=== PATIENT | male | born 1975 | race African-American/Black ===

== ENCOUNTER 2018-10-22 19:11 | Emergency (ER) | payer BC ==
[~2018-10-22] VITALS: Ht 175.3 cm; Wt 83.0 kg
[~2018-10-22 19:11] MED LIST: insulin; metformin
[2018-10-22 19:46] VITALS: BP 123/76
== END 2018-10-22 19:58 | disposition left against medical advice (07) ==
LOC: ER 19:11
DX: Z53.21 Procedure and treatment not carried out due to patient leaving prior to being seen by health care provider (principal)

== ENCOUNTER 2022-12-19 23:41 | Emergency (ER) | payer BC, MEDICAID ==
[~2022-12-19] VITALS: Ht 175.3 cm; Wt 98.5 kg
[2022-12-20 00:17] VITALS: BP 107/73
== END 2022-12-20 03:20 | disposition left against medical advice (07) ==
LOC: ER 23:57
DX: M25.511 Pain in right shoulder (principal); Z53.21 Procedure and treatment not carried out due to patient leaving prior to being seen by health care provider
CPT/HCPCS: 99281